=== PATIENT | male | born 1980 ===

== ENCOUNTER 2018-05-19 13:23 | Emergency (ER) | payer OTHER ==
[2018-05-19 13:59] VITALS: BP 120/76; PULSE 63; RESP 18; TEMP 98.7; O2SAT 95
[2018-05-19] MEDS ORDERED: PROPARACAINE/FLUORESCEIN SOD 100 DROP/5 ML BOTTLE OD STA (14:10)
[2018-05-19] MEDS ORDERED: PROPARACAINE/FLUORESCEIN SOD 100 DROP/5 ML BOTTLE ONE (14:19)
--- NOTE | 2018-05-19 14:32 | C.PDOC ---
History Of Present Illness 44 year old female presents to ED for evaluation of foreign body to the right eye after cutting wood. Denies fever, vomiting, nausea, and other associated symptoms. Time Seen by Provider: 05/19/18 14:01 Chief Complaint (Nursing): Eye Problem History Per: Patient History/Exam Limitations: no limitations Onset/Duration Of Symptoms: Hrs Current Symptoms Are (Timing): Still Present Past Medical History Reviewed: Historical Data, Nursing Documentation, Vital Signs Vital Signs: Last Vital Signs Temp 98.7 F 05/19/18 13:58 Pulse 63 05/19/18 13:58 Resp 18 05/19/18 13:58 BP 120/76 05/19/18 13:58 Pulse Ox 95 05/19/18 15:09 Surgical History: No Surg Hx Family History: States: Unknown Family Hx - Social History Hx Alcohol Use: No Hx Substance Use: No - Immunization History Hx Tetanus Toxoid Vaccination: No Hx Influenza Vaccination: No Hx Pneumococcal Vaccination: No Review Of Systems Except As Marked, All Systems Reviewed And Found Negative. Constitutional: Negative for: Fever, Chills Eyes: Positive for: Other (possible foreign body to the right eye ) Gastrointestinal: Negative for: Nausea, Vomiting Physical Exam - Physical Exam Appears: Non-toxic, No Acute Distress Skin: Normal Color Head: Atraumatic, Normacephalic Eye(s): bilateral: Normal Inspection, PERRL, EOMI Pulses: Left Radial: Normal, Right Radial: Normal Neurological/Psych: Oriented x3, Normal Speech Gait: Steady ED Course And Treatment O2 Sat by Pulse Oximetry: 95 (RA) Pulse Ox Interpretation: Normal Medical Decision Making Medical Decision Making: Plan: -Erythromycin -Flucaine Eye Drops Right eye injection. ?foreign body 1200, increased florecin uptake. case dicsused with optho. will see pt in am pt instructed to f/u with dr winslow at 8am. eye patched by rn. Disposition - Disposition Referrals: Tera Winslow MD [Staff Provider] - Disposition: HOME/ ROUTINE Disposition Time: 14:33 Condition: STABLE Additional Instructions: follow up with optho. return to er wirsening symptoms or concerns. Prescriptions: Polymyxin/Trimethoprim Sulfate [Polytrim Ophth Soln] 1 drop RIGHTEYE Q4 #1 bottle Instructions: Corneal Abrasion Forms: [employer] (Yakut) - Clinical Impression Clinical Impression: Corneal abrasion - Scribe Statement The provider has reviewed the documentation as recorded by the Scribe (Cecily Archuleta) Provider Attestation: All medical record entries made by the Scribe were at my direction and personally dictated by me. I have reviewed the chart and agree that the record accurately reflects my personal performance of the history, physical exam, medical decision making, and the department course for this patient. I have also personally directed, reviewed, and agree with the discharge instructions and disposition.
[2018-05-19] MEDS ORDERED: Erythromycin 0.5% Ophth Oint 1 APPLIC/3.5 G OD STA (14:41)
[2018-05-19] MEDS ORDERED: Erythromycin 0.5% Ophth Oint 1 APPLIC/3.5 G ONE (14:50)
== END 2018-05-19 15:00 | disposition home or self-care (01) ==
LOC: C.ER 13:23
DX: S05.01XA Injury of conjunctiva and corneal abrasion without foreign body, right eye, initial encounter (principal); X58.XXXA Exposure to other specified factors, initial encounter